=== PATIENT | female | born 1995 | race Caucasian/White ===

== ENCOUNTER 2016-08-24 07:23 | Emergency (ER) | payer BC ==
[2016-08-24] MEDS ORDERED: ONDANSETRON 4 MG TAB.RAPDIS PO ONE (08:55)
[2016-08-24] MEDS ORDERED: NORMAL SALINE 1000 ML 1,000 ML IV ONE ×2 (08:55→09:31)
--- NOTE | 2016-08-24 08:55 | ER Document Report ---
ED GI/ - General Chief Complaint: Vomiting Stated Complaint: NAUSEA Time seen by provider: 08:55 Mode of Arrival: Ambulatory Information source: Patient, Parent Notes: 21 yo female with celiac dx vomiting since last night. Generalized abdominal pain. No diarrhea or fever. No uti sx. not . Feels dry. TRAVEL OUTSIDE OF THE [place] IN LAST 30 DAYS: No - Related Data Allergies/Adverse Reactions: oxycodone HCl [From Percocet] Allergy (Severe, Verified 08/24/16 07:39) severe vomiting montelukast sodium [From Singulair] Adverse Reaction (Severe, Verified 08/24/16 07:39) severe vomiting wheat [Wheat] Adverse Reaction (Severe, Verified 08/24/16 07:39) NAUSEA,VOMITING,BLOATING,CONSTIPATION Past Medical History - General Information source: Patient, Parent - Social History Smoking Status: Never Smoker Chew tobacco use (# tins/day): No Frequency of alcohol use: None Drug Abuse: None Lives with: Parents Family History: Reviewed & Not Pertinent Patient has suicidal ideation: No Patient has homicidal ideation: No Pulmonary Medical History: Reports: Hx Asthma - ALLERGY INDUCED ASTHMA/COUGH/ last used rescue inhaler in spring 2014 Neurological Medical History: Reports: Hx Migraine GI Medical History: Reports: Other - celiac dx Past Surgical History: Reports: Hx Orthopedic Surgery - shane's disease surgery - Immunizations Immunizations up to date: Yes Hx Diphtheria, Pertussis, Tetanus Vaccination: Yes Review of Systems - Review of Systems Constitutional: No symptoms reported EENT: No symptoms reported Cardiovascular: No symptoms reported Respiratory: No symptoms reported Gastrointestinal: See HPI Genitourinary: No symptoms reported Female Genitourinary: No symptoms reported Musculoskeletal: No symptoms reported Skin: No symptoms reported Hematologic/Lymphatic: No symptoms reported Neurological/Psychological: No symptoms reported Physical Exam - Vital signs Vitals: Temp Pulse Resp BP Pulse Ox 97.8 F 110 H 18 128/74 H 97 08/24/16 07:40 08/24/16 07:40 08/24/16 07:40 08/24/16 07:40 08/24/16 07:40 Interpretation: Normal - General General appearance: Appears well, Alert - HEENT Head: Normocephalic, Atraumatic Eyes: Normal Pupils: PERRL - Respiratory Respiratory status: No respiratory distress Chest status: Nontender Breath sounds: Normal Chest palpation: Normal - Cardiovascular Rhythm: Regular Heart sounds: Normal auscultation Murmur: No - Abdominal Inspection: Normal Distension: No distension Bowel sounds: Normal Tenderness: Other - minimal left periumbilical Organomegaly: No organomegaly - Back Back: Normal, Nontender. No: CVA tenderness - Extremities General upper extremity: Normal inspection, Nontender, Normal color, Normal ROM , Normal temperature General lower extremity: Normal inspection, Nontender, Normal color, Normal ROM , Normal temperature, Normal weight bearing. No: Philippe's sign - Neurological Neuro grossly intact: Yes Cognition: Normal Orientation: AAOx4 [place] Coma Scale Eye Opening: Spontaneous [place] Coma Scale Verbal: Oriented [place] Coma Scale Motor: Obeys Commands [place] Coma Scale Total: 15 Speech: Normal Motor strength normal: LUE, RUE, LLE, RLE Sensory: Normal - Psychological Associated symptoms: Normal affect, Normal mood - Skin Skin Temperature: Warm Skin Moisture: Dry Skin Color: Normal Skin irregularity: negative: Rash Course - Re-evaluation Re-evalutation: 08/24/16 11:33 feels better, eating popsicle without vomiting. abdomin hurts less, mild tender to the left of umbilicus. - Vital Signs Vital signs: Temp Pulse Resp BP Pulse Ox 97.7 F 99 16 113/54 L 99 08/24/16 11:31 08/24/16 11:31 08/24/16 11:31 08/24/16 11:31 08/24/16 11:31 - Laboratory Result Diagrams: 08/24/16 09:15 08/24/16 09:15 Laboratory results interpreted by me: 08/24/16 08/24/16 07:50 09:15 Seg Neutrophils % 88.9 H Lymphocytes % 6.5 L Absolute Lymphocytes 0.4 L Urine Ketones TRACE H Urine Urobilinogen 2.0 H Discharge - Discharge Clinical Impression: Dehydration, nausea, abdominal pain Vomiting Qualifiers: Vomiting type: unspecified Vomiting Intractability: non-intractable Nausea presence: with nausea Qualified Code(s): R11.2 - Nausea with vomiting, unspecified Condition: Good Disposition: HOME, SELF-CARE Instructions: Antinausea Medication ([facility]), Intravenous (IV) Fluids ([facility]), Vomiting ([facility]), Dehydration ([facility]), Abdominal Pain ([facility]) Additional Instructions: plenty of fluids to er if worse copy of labs given to you Prescriptions: Ondansetron HCl [Zofran 4 mg Tablet] 1 - 2 tab PO Q4H PRN #20 tablet PRN Reason: Forms: Return to Work Referrals: RENAE CARRION MD [Primary Care Provider] - Follow up tomorrow
[2016-08-24 09:39] LABS: ABSOLUTE LYMPHOCYTES (AUTO) 0.4 10^3/uL (0.5-4.7); ABSOLUTE MONOCYTES (AUTO) 0.2 10^3/uL (0.1-1.4); ABSOLUTE NEUT (AUTO) 5.4 10^3/uL (1.7-8.2); BASOPHILS % (AUTO) 0.4 % (0-2); EOSINOPHILS % (AUTO) 0.5 % (0-6); HEMATOCRIT 42.3 % (36.0-47.0); HEMOGLOBIN 14.1 g/dL (12.0-15.5); LYMPHOCYTES % (AUTO) 6.5 % (13-45); MEAN CORPUSCULAR HEMOGLOBIN 30.2 pg (27.0-33.4); MEAN CORPUSCULAR HGB CONC 33.3 g/dL (32.0-36.0); MEAN CORPUSCULAR VOLUME 91 fl (80-97); MONOCYTES % (AUTO) 3.7 % (3-13); RED BLOOD COUNT 4.66 10^6/uL (3.72-5.28); RED CELL DISTRIBUTION WIDTH 12.8 % (11.5-14.0); SEGMENTED NEUTROPHILS % (AUTO) 88.9 % (42-78)
[2016-08-24 09:44] LABS: APPEARANCE,URINE SLIGHTLY-CLOUDY; BILIRUBIN,URINE NEGATIVE (NEGATIVE); GLUCOSE, URINE NEGATIVE (NEGATIVE); KETONES,URINE TRACE mg/dL (NEGATIVE); LEUKOCYTE ESTERASE,URINE NEGATIVE (NEGATIVE); NITRITE,URINE NEGATIVE (NEGATIVE); PROTEIN,URINE NEGATIVE (NEGATIVE); URINE SPECIFIC GRAVITY 1.029
[2016-08-24 10:06] LABS: ALANINE AMINOTRANSFERASE 32 U/L (9-52); ALBUMIN 4.8 g/dL (3.5-5.0); ALKALINE PHOSPHATASE 102 U/L (38-126); ANION GAP 16 (5-19); ASPARTATE AMINO TRANSFERASE 23 U/L (14-36); BILIRUBIN,TOTAL 0.7 mg/dL (0.2-1.3); BLOOD UREA NITROGEN 14 mg/dL (7-20); CALCIUM 9.6 mg/dL (8.4-10.2); CARBON DIOXIDE 22 mmol/L (22-30); CHLORIDE 106 mmol/L (98-107); CREATININE RESULT 0.67 mg/dL (0.52-1.25); GLUCOSE 95 mg/dL (75-110); LIPASE 92.2 U/L (23-300); POTASSIUM 4.1 mmol/L (3.6-5.0); SODIUM 144.4 mmol/L (137-145); TOTAL PROTEIN 7.8 g/dL (6.3-8.2)
[2016-08-24 11:43] VITALS: BP 113/54
== END 2016-08-24 11:43 | disposition home or self-care (01) ==
LOC: ER 07:23
DX: K90.0 Celiac disease (principal); R11.2 Nausea with vomiting, unspecified; R10.84 Generalized abdominal pain; E86.0 Dehydration; J45.909 Unspecified asthma, uncomplicated; Z88.5 Allergy status to narcotic agent
CPT/HCPCS: 99283; 96360; 96361; 36415; 87086; 83690; 84703; 85025; 80053; 81001; S0119; J7030

== ENCOUNTER 2016-10-07 13:28 | Emergency (ER) | payer BC ==
--- NOTE | 2016-10-07 13:44 | ER Document Report ---
ED Medical Screen (RME) - General Stated Complaint: HEAD PAIN Mode of Arrival: Ambulatory Information source: Patient Notes: Patient complains of headache pain that started around 11 AM this morning. Patient reports nausea and vomiting today. Patient took Topamax and amitriptyline as well as Maxalt without relief of her symptoms. Patient was given Phenergan and denies any improvement. No fever. hx; migraines, celiac I have greeted and performed a rapid initial assessment of this patient. A comprehensive ED assessment and evaluation of the patient, analysis of test results and completion of the medical decision making process will be conducted by additional ED providers. TRAVEL OUTSIDE OF THE [place] IN LAST 30 DAYS: No - Related Data Allergies/Adverse Reactions: oxycodone HCl [From Percocet] Allergy (Severe, Verified 10/07/16 13:41) severe vomiting montelukast sodium [From Singulair] Adverse Reaction (Severe, Verified 10/07/16 13:41) severe vomiting wheat [Wheat] Adverse Reaction (Severe, Verified 10/07/16 13:41) NAUSEA,VOMITING,BLOATING,CONSTIPATION Past Medical History - Past Medical History Cardiac Medical History: Denies: Hx Heart Attack, Hx Hypertension Pulmonary Medical History: Reports: Hx Asthma - ALLERGY INDUCED ASTHMA/COUGH/ last used rescue inhaler in spring 2014 Neurological Medical History: Reports: Hx Migraine. 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 Denies: Hx Hysterectomy, Hx Mastectomy, Hx Open Heart Surgery, Hx Pacemaker - Immunizations Immunizations up to date: Yes Hx Diphtheria, Pertussis, Tetanus Vaccination: Yes Physical Exam - Vital signs Vitals: Temp Pulse Resp BP Pulse Ox 97.8 F 122 H 16 104/66 98 10/07/16 13:38 10/07/16 13:38 10/07/16 13:38 10/07/16 13:38 10/07/16 13:38 - Cardiovascular Rhythm: Tachycardia Heart sounds: S1 appreciated, S2 appreciated - Neurological Orientation: AAOx4 [place] Coma Scale Eye Opening: Spontaneous [place] Coma Scale Verbal: Oriented [place] Coma Scale Motor: Obeys Commands [place] Coma Scale Total: 15 Course - Vital Signs Vital signs: Temp Pulse Resp BP Pulse Ox 97.8 F 122 H 16 104/66 98 10/07/16 13:38 10/07/16 13:38 10/07/16 13:38 10/07/16 13:38 10/07/16 13:38
[2016-10-07] MEDS ORDERED: METOCLOPRAMIDE HCL 10 MG TABLET PO ONE (16:57)
[2016-10-07] MEDS ORDERED: DIPHENHYDRAMINE HCL 50 MG CAPSULE PO ONE ×2 (16:57→17:00)
[2016-10-07] MEDS ORDERED: ONDANSETRON 4 MG TAB.RAPDIS PO ONE (16:58)
[2016-10-07] MEDS ORDERED: KETOROLAC TROMETHAMINE 60 MG/2 ML SDV IM ONE (16:59)
--- NOTE | 2016-10-07 17:12 | ER Document Report ---
ED Headache - General Chief Complaint: Headache Stated Complaint: HEAD PAIN Mode of Arrival: Ambulatory Notes: Patient is complaining of a severe headache. She says that she has a long history of headaches, first diagnosed about 3 years ago. She has been under a local neurologist and recently changed to the care of another local neurologist , Dr. Chavira, seeing him for the first time this past week. She is currently maintained on Topamax twice a day and amitriptyline in the evening. Dr. Chavira also just prescribed Rizatryptan as a rescue medication. Patient says that she began to have a mild headache about 8 PM last evening. She took her routine amitriptyline and Topamax and felt "fine" after that and went out to dinner with friends and came home about 10 PM. She began doing some cooking and felt her headache getting worse. She took one of her rescue pills about midnight but it did not relieve the headache. She's had several vomiting episodes throughout the night until about 9 AM this morning, although she remained nauseated, in spite of Zofran, throughout the afternoon. She took her scheduled Topamax this morning. Patient says that she has been scheduled for an EEG by Dr. Chavira. She has been having blackout spells and he is concerned she might be having some sort of seizure problem. Patient has not had any fever. No persistent neurologic deficits, but does feel dizzy and off-balance.. Patient's headache is located in the back of her head. Patient says that she has not had a headache this bad since she first started having them back in 2014. At that time, she had a CT scan of her head and an MRI of her head. She was not told of any abnormalities on either of these studies. Patient also has celiac disease. TRAVEL OUTSIDE OF THE [place] IN LAST 30 DAYS: No - Related Data Allergies/Adverse Reactions: oxycodone HCl [From Percocet] Allergy (Severe, Verified 10/07/16 13:41) severe vomiting montelukast sodium [From Singulair] Adverse Reaction (Severe, Verified 10/07/16 13:41) severe vomiting wheat [Wheat] Adverse Reaction (Severe, Verified 10/07/16 13:41) NAUSEA,VOMITING,BLOATING,CONSTIPATION Past Medical History - General Information source: Patient - Social History Smoking Status: Never Smoker Chew tobacco use (# tins/day): No Frequency of alcohol use: None Drug Abuse: None Family History: Reviewed & Not Pertinent Patient has suicidal ideation: No Patient has homicidal ideation: No Pulmonary Medical History: Reports: Hx Asthma - ALLERGY INDUCED ASTHMA/COUGH/ last used rescue inhaler in spring 2014 Neurological Medical History: Reports: Hx Migraine Past Surgical History: Reports: Hx Orthopedic Surgery - shane's disease surgery - Immunizations Immunizations up to date: Yes Hx Diphtheria, Pertussis, Tetanus Vaccination: Yes Review of Systems - Review of Systems Notes: REVIEW OF SYSTEMS: CONSTITUTIONAL : Denies fever. EENT: Denies eye, ear, nose or mouth or throat pain or other symptoms. CARDIOVASCULAR: Denies chest pain. RESPIRATORY: Denies cough, chest congestion, or shortness of breath. GASTROINTESTINAL: Has had nausea and vomiting but no diarrhea. GENITOURINARY: Denies difficulty or painful urinating, urinary frequency, blood in urine. MUSCULOSKELETAL: Denies back or neck pain. Denies joint pain or swelling. SKIN: Denies rash or skin lesions. NEUROLOGICAL: See history of present illness.. ALL OTHER SYSTEMS REVIEWED AND NEGATIVE. Physical Exam - Vital signs Vitals: Temp Pulse Resp BP Pulse Ox 97.8 F 122 H 16 104/66 98 10/07/16 13:38 10/07/16 13:38 10/07/16 13:38 10/07/16 13:38 10/07/16 13:38 Interpretation: Tachycardic - Mild - Notes Notes: PHYSICAL EXAMINATION: GENERAL: Well-appearing, in no acute distress. Ambulatory. Vital signs are all normal except for mild tachycardia. HEAD: Atraumatic, normocephalic. EYES: Pupils equal round and reactive to light, extraocular movements intact. ENT: oropharynx clear without exudates. Moist mucous membranes. NECK: Normal range of motion, supple. Can easily flex head yes and touch chin on chest. LUNGS: Breath sounds clear and equal bilaterally. HEART: Regular rate and rhythm without murmurs. Heart rate at bedside 100 taken by me. ABDOMEN: Soft, nontender. No guarding or rebound. BACK: No tenderness throughout entire back. EXTREMITIES: Normal range of motion without pain. NEUROLOGICAL: Normal speech, normal gait. Normal sensory, motor, and reflex exams. Awake, alert, and oriented x3. Cranial nerves normal. PSYCH: Normal mood, normal affect. SKIN: Warm, dry, no rashes. Course - Re-evaluation Re-evalutation: 10/07/16 18:56 Patient says her headache is a little bit better. She was, in fact, dozing when I entered the exam room which has the light turned down. She has been drinking liquids and keeping them down. CT of her head was negative. - Vital Signs Vital signs: Temp Pulse Resp BP Pulse Ox 97.7 F 77 16 100/60 98 10/07/16 19:09 10/07/16 19:09 10/07/16 13:38 10/07/16 19:09 10/07/16 19:09 - Diagnostic Test Radiology reviewed: Image reviewed, Reports reviewed - CT of the patient's brain and head are normal. Discharge - Discharge Clinical Impression: Headache Qualifiers: Headache type: unspecified Headache chronicity pattern: acute headache Intractability: intractable Qualified Code(s): R51 - Headache Vomiting Qualifiers: Vomiting type: unspecified Vomiting Intractability: non-intractable Nausea presence: with nausea Qualified Code(s): R11.2 - Nausea with vomiting, unspecified Condition: Stable Disposition: HOME, SELF-CARE Additional Instructions: HEADACHE: The physician does not feel that the headache you are experiencing has a serious underlying cause. Most headaches are due to emotional stress, with resultant muscle tension (tension headache). Occasionally, headaches are secondary to changes in the blood vessels of the scalp (vascular headache and migraine headache). Sometimes, a headache is the first symptom of another developing illness, such as a viral infection. You have no evidence of stroke, bleeding, meningitis, or other serious cause of your headache. The treatment of headaches varies with the severity and cause of the pain. Not all headaches need pain shots. In fact, there is evidence that using narcotics for headaches may make them worse in the long run. The physician will determine the therapy that's in your best interest. If you develop a fever, if the headache is different from any you've previously experienced, or if the headache progressively worsens, then call your physician at once or go to the emergency room. REGLAN (METOCLOPRAMIDE): Reglan has been prescribed. This medicine affects the stomach and intestines. It can be used to treat nausea and vomiting, to prevent reflux of stomach acid up into the esophagus, or to increase the contractions of the stomach and intestines. It is often prescribed for esophagitis, and for paralysis of the stomach in diabetics. Reglan can cause either mild restlessness or drowsiness. You should contact the doctor at once if you become extremely restless, anxious, or cannot sleep, or if you develop uncontrollable motions of the lips, tongue, or jaw. Do not take alcohol with this medicine. Do not drive or operate machinery until you have been taking this medicine long enough to know how it affects you. Call the doctor if you develop abdominal pains, lightheadedness, black stool, or blood in the stool or vomitus. USE OF DIPHENHYDRAMINE along with Reglan: Diphenhydramine (Benadryl) is an antihistamine and has been recommended to help treat your headache and to prevent side effects of other medications used to treat headaches. The medication can be repeated four times daily. Age Elixir (12.5 mg/tsp) 25 mg pill adult 1-2 tabs Antihistamines may cause drowsiness, especially with the first dose. Do not operate machinery or drive while under the effects of the medication. Do not combine the medication with alcohol, or with any other medication without talking to your doctor. ANTINAUSEA MEDICATION: You have been given a medication to suppress nausea and vomiting. This type of medication can be given as a shot, pill, or suppository. It will usually last for many hours. Pills and shots usually last six to eight hours, suppositories last about 12 hours. For the typical illness, only one or two doses of the medication may be necessary. Mild lightheadedness may occur. This type of medicine can cause drowsiness. Do not drive or operate dangerous machinery while under its influence. Do not mix with alcohol. See your doctor at once if you have muscle spasms or tightness, or uncontrollable motions (particularly of the neck, mouth, or jaw). Persistent vomiting or severe lightheadedness should also be evaluated by the physician. TORADOL INJECTION: You have been given an injection of ketorolac tromethamine (Toradol). This is an excellent, safe drug for pain control. It also has potent antiinflammatory action. You should have significant pain relief within about one hour. Toradol is not addicting and is non-sedating. It does not interfere with driving or work. Call or return if you develop itching, hives, shortness of breath, or rash. FOLLOW-UP CARE: If you have been referred to a physician for follow-up care, call the physician s office for an appointment as you were instructed or within the next two days. If you experience worsening or a significant change in your symptoms, notify the physician immediately or return to the Emergency Department at any time for re-evaluation. Prescriptions: Ondansetron [Zofran Odt 4 mg Tablet] 1 - 2 tab PO Q4HP PRN #15 tab.rapdis PRN Reason: For Nausea/Vomiting Metoclopramide HCl [Reglan 10 mg Tablet] 1 - 2 tab PO Q6HP PRN #20 tablet PRN Reason: Forms: Return to School, Return to Work Referrals: DEYANIRA CHAVIRA MD [ACTIVE STAFF] - Follow up as needed
[2016-10-07] MEDS ORDERED: DIPHENHYDRAMINE HCL 25 MG CAPSULE ONE (17:18)
[2016-10-07] MEDS ORDERED: DIPHENHYDRAMINE HCL 25 MG CAPSULE PO ONE (17:19)
[2016-10-07 19:11] VITALS: BP 100/60
== END 2016-10-07 19:18 | disposition home or self-care (01) ==
LOC: ER 13:28
DX: R51 Headache (principal); Z79.899 Other long term (current) drug therapy; R11.2 Nausea with vomiting, unspecified; R42 Dizziness and giddiness; J45.909 Unspecified asthma, uncomplicated; K90.0 Celiac disease; Z88.5 Allergy status to narcotic agent
CPT/HCPCS: 99283; 96372; 70450; J1885; S0119

== ENCOUNTER 2017-02-12 12:40 | Emergency (ER) | payer BC ==
[2017-02-12 12:50] VITALS: BP 115/74
[2017-02-12] MEDS ORDERED: ONDANSETRON 4 MG TAB.RAPDIS PO ONE (12:59)
[2017-02-12] MEDS ORDERED: HYDROCODONE/ACETAMINOPHEN 5-325 MG TABLET PO ONE (12:59)
--- NOTE | 2017-02-12 13:03 | ER Document Report ---
ED Medical Screen (RME) - General Chief Complaint: Abdominal Pain Stated Complaint: RIGHT SIDE PAIN Time Seen by Provider: 02/12/17 12:54 Notes: The patient is a 21-year-old female, past medical history celiac disease, presents with 5 hours of continued right upper quadrant and right lower quadrant abdominal pain. She is also feeling nauseous. LMP 01/28/2017. Denies vomiting, diarrhea, constipation, dysuria, hematuria, chest pain or shortness of breath. PE: RUQ and RLQ abdominal tenderness. Normal bowel sounds. Right CVA tenderness. RRR. Lungs CTAB. I have greeted and performed a rapid initial assessment of this patient. A comprehensive ED assessment and evaluation of the patient, analysis of test results and completion of the medical decision making process will be conducted by additional ED providers. TRAVEL OUTSIDE OF THE [place] IN LAST 30 DAYS: No - Related Data Allergies/Adverse Reactions: oxycodone HCl [From Percocet] Allergy (Severe, Verified 02/12/17 12:47) severe vomiting montelukast sodium [From Singulair] Adverse Reaction (Severe, Verified 02/12/17 12:47) severe vomiting wheat [Wheat] Adverse Reaction (Severe, Verified 10/07/16 13:41) NAUSEA,VOMITING,BLOATING,CONSTIPATION Past Medical History - Past Medical History Cardiac Medical History: Denies: Hx Heart Attack, Hx Hypertension Pulmonary Medical History: Reports: Hx Asthma - ALLERGY INDUCED ASTHMA/COUGH/ last used rescue inhaler in spring 2014 Neurological Medical History: Reports: Hx Migraine. 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 Denies: Hx Hysterectomy, Hx Mastectomy, Hx Open Heart Surgery, Hx Pacemaker - Immunizations Immunizations up to date: Yes Hx Diphtheria, Pertussis, Tetanus Vaccination: Yes Physical Exam - Vital signs Vitals: Temp Pulse Resp BP Pulse Ox 98.4 F 93 18 115/74 99 02/12/17 12:48 02/12/17 12:48 02/12/17 12:48 02/12/17 12:48 02/12/17 12:48 Course - Vital Signs Vital signs: Temp Pulse Resp BP Pulse Ox 98.4 F 93 18 115/74 99 02/12/17 12:48 02/12/17 12:48 02/12/17 12:48 02/12/17 12:48 02/12/17 12:48
[2017-02-12] MEDS ORDERED: KETOROLAC TROMETHAMINE 60 MG/2 ML SDV IM ONE (13:36)
--- NOTE | 2017-02-12 13:39 | ER Document Report ---
ED General - General Chief Complaint: Abdominal Pain Stated Complaint: RIGHT SIDE PAIN Time Seen by Provider: 02/12/17 12:54 Notes: 21-year-old female with celiac disease presents with about 6 hours of right- sided abdominal pain, right upper quadrant, radiating to the right flank, severe , worsening. Associated with nausea but no vomiting. Associated with anorexia. Denies fevers or chills. The pain gets worse when she takes a deep breath but she has no chest pain or shortness of breath. She denies urinary symptoms. TRAVEL OUTSIDE OF THE [place] IN LAST 30 DAYS: No - Related Data Allergies/Adverse Reactions: oxycodone HCl [From Percocet] Allergy (Severe, Verified 02/12/17 13:30) severe vomiting barley Allergy (Verified 02/12/17 13:30) montelukast sodium [From Singulair] Adverse Reaction (Severe, Verified 02/12/17 13:30) severe vomiting wheat [Wheat] Adverse Reaction (Severe, Verified 02/12/17 13:30) NAUSEA,VOMITING,BLOATING,CONSTIPATION acetaminophen [From [place]] Adverse Reaction (Verified 02/12/17 13:30) Constipation hydrocodone [From [place]] Adverse Reaction (Verified 02/12/17 13:30) Constipation rye Allergy (Uncoded 02/12/17 13:30) Past Medical History - Social History Smoking Status: Never Smoker Chew tobacco use (# tins/day): No Frequency of alcohol use: None Drug Abuse: None Family History: Reviewed & Not Pertinent Patient has suicidal ideation: No Patient has homicidal ideation: No - Past Medical History Cardiac Medical History: Denies: Hx Heart Attack, Hx Hypertension Pulmonary Medical History: Reports: Hx Asthma - ALLERGY INDUCED ASTHMA/COUGH/ last used rescue inhaler in spring 2014 Neurological Medical History: Reports: Hx Migraine. Denies: Hx Cerebrovascular Accident, Hx Seizures Renal/ Medical History: Denies: Hx Peritoneal Dialysis GI Medical History: Reports: Hx Gastroesophageal Reflux Disease. 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 Denies: Hx Hysterectomy, Hx Mastectomy, Hx Open Heart Surgery, Hx Pacemaker - Immunizations Immunizations up to date: Yes Hx Diphtheria, Pertussis, Tetanus Vaccination: Yes Review of Systems - Review of Systems Notes: GEN: Denies fever, chills, weight loss ENT: Denies sore throat, nasal discharge, ear pain EYES: Denies blurry vision, eye pain, discharge CV: Denies chest pain, palpitations, edema RESP: Denies cough, shortness of breath, wheezing GI: Quadrant abdominal pain MSK: Denies joint pain/swelling, edema, SKIN: Denies rash, skin lesions LYMPH: Denies swollen glands/lymph nodes NEURO: Denies headache, focal weakness or numbness, dizziness PSYCH: Denies depression, suicidal or homicidal ideation Physical Exam - Vital signs Vitals: Temp Pulse Resp BP Pulse Ox 98.4 F 93 18 115/74 99 02/12/17 12:48 02/12/17 12:48 02/12/17 12:48 02/12/17 12:48 02/12/17 12:48 - Notes Notes: General: No acute distress, well-nourished Head: Atraumatic, normocephalic ENT: Mouth normal, oropharynx moist, no exudates or tonsillar enlargement Eyes: Conjunctiva normal, pupils equal, lids normal Neck: No JVD, supple, no guarding CVS: Normal rate, regular rhythm, no murmurs Resp: No resp distress, equal and normal breath sounds bilaterally GI: Nondistended, soft, quadrant tenderness, right flank tenderness, right CVA tenderness Ext: No deformities, no edema, normal range of motion in upper and lower ext Skin: No rash, warm Lymphatic: No lymphadeopathy noted Neuro: Awake, alert. Face symmetric. Course - Re-evaluation Re-evalutation: 02/12/17 13:38 21-year-old female presented with acute right upper quadrant flank pain. She has some tenderness. Not septic based on vital signs. Differential includes pyelonephritis, gallbladder disease less likely appendicitis. Plan: Urinalysis and labs have already been ordered by provider at triage. Will treat pain with Toradol. Patient cannot take [place]. 02/12/17 15:22 Reevaluated, pain is better. CT scan shows right-sided ovarian cyst which is likely the source of pain. I do not believe this is torsion because the cyst is not mentioned is having low flow on CT and the patient is quite comfortable. She will follow up with primary care, versus GENERAL MANAGER, and take ibuprofen for pain. - Vital Signs Vital signs: Temp Pulse Resp BP Pulse Ox 98.4 F 93 18 115/74 99 02/12/17 12:48 02/12/17 12:48 02/12/17 12:48 02/12/17 12:48 02/12/17 12:48 - Laboratory Result Diagrams: 02/12/17 13:05 02/12/17 13:05 Laboratory results interpreted by me: 02/12/17 02/12/17 13:05 13:05 Chloride 108 H Urine Protein 30 H Discharge - Discharge Condition: Good Disposition: HOME, SELF-CARE Additional Instructions: Your pain is likely coming from a right sided ovarian cyst. Please take ibuprofen 600 mg every 6 hours for pain relief. Please return to the emergency department if her pain changes, gets worse, or is accompanied by nausea vomiting or fever. Please follow-up with your GENERAL MANAGER.
[2017-02-12 13:40] LABS: ABSOLUTE LYMPHOCYTES (AUTO) 1.5 10^3/uL (0.5-4.7); ABSOLUTE MONOCYTES (AUTO) 0.5 10^3/uL (0.1-1.4); ABSOLUTE NEUT (AUTO) 4.4 10^3/uL (1.7-8.2); BASOPHILS % (AUTO) 0.4 % (0-2); EOSINOPHILS % (AUTO) 0.2 % (0-6); HEMATOCRIT 37.9 % (36.0-47.0); HEMOGLOBIN 12.8 g/dL (12.0-15.5); HGB HCT DIFFERENCE 0.5; LYMPHOCYTES % (AUTO) 22.8 % (13-45); MEAN CORPUSCULAR HEMOGLOBIN 30.3 pg (27.0-33.4); MEAN CORPUSCULAR HGB CONC 33.7 g/dL (32.0-36.0); MEAN CORPUSCULAR VOLUME 90 fl (80-97); RED BLOOD COUNT 4.23 10^6/uL (3.72-5.28); RED CELL DISTRIBUTION WIDTH 12.7 % (11.5-14.0); SEGMENTED NEUTROPHILS % (AUTO) 68.6 % (42-78); WHITE BLOOD COUNT 6.4 10^3/uL (4.0-10.5)
[2017-02-12 13:42] LABS: APPEARANCE,URINE SLIGHTLY-CLOUDY; BILIRUBIN,URINE NEGATIVE (NEGATIVE); GLUCOSE, URINE NEGATIVE (NEGATIVE); KETONES,URINE NEGATIVE (NEGATIVE); LEUKOCYTE ESTERASE,URINE NEGATIVE (NEGATIVE); NITRITE,URINE NEGATIVE (NEGATIVE); PROTEIN,URINE 30 mg/dL (NEGATIVE); URINE SPECIFIC GRAVITY 1.027; UROBILINOGEN,URINE NEGATIVE mg/dL (<2.0)
[2017-02-12 14:03] LABS: ALANINE AMINOTRANSFERASE 29 U/L (9-52); ALBUMIN 4.4 g/dL (3.5-5.0); ALKALINE PHOSPHATASE 89 U/L (38-126); ANION GAP 12 (5-19); ASPARTATE AMINO TRANSFERASE 19 U/L (14-36); BILIRUBIN,DIRECT 0.3 mg/dL (0.0-0.4); BILIRUBIN,TOTAL 0.7 mg/dL (0.2-1.3); BLOOD UREA NITROGEN 10 mg/dL (7-20); CALCIUM 9.5 mg/dL (8.4-10.2); CARBON DIOXIDE 22 mmol/L (22-30); CHLORIDE 108 mmol/L (98-107); GLUCOSE 88 mg/dL (75-110); SODIUM 142.1 mmol/L (137-145); TOTAL PROTEIN 7.6 g/dL (6.3-8.2)
--- NOTE | 2017-02-12 14:16 | RADIOLOGY REPORT (SQ) ---
EXAM DESCRIPTION: U/S ABDOMEN LIMITED W/O DOP COMPLETED DATE/TIME: 02/12/2017 2:06 pm REASON FOR STUDY: RUQ pain COMPARISON: None. TECHNIQUE: Dynamic and static grayscale images acquired of the abdomen and recorded on PACS. Additio nal selected color Doppler and spectral images recorded. LIMITATIONS: None. FINDINGS: PANCREAS: No masses. Visualized pancreatic duct normal caliber. LIVER: 17.3 cm. Normal echotexture. LIVER VASCULATURE: Normal directional flow of the main portal vein and hepatic veins. GALLBLADDER: No stones. Normal wall thickness. No pericholecystic fluid. ULTRASOUND-DETECTED CARTY'S SIGN: Negative. INTRAHEPATIC DUCTS AND COMMON DUCT: Common bile duct is normal at 3 mm. There is no dilatation of in trahepatic ducts. INFERIOR VENA CAVA: Normal flow. AORTA: No aneurysm. RIGHT KIDNEY: Normal size, 10.2 cm. Normal echogenicity. No solid or suspicious masses. No hydroneph rosis. No calcifications. PERITONEAL AND RIGHT PLEURAL SPACE: No ascites or effusions. OTHER: No other significant findings. IMPRESSION: NORMAL RIGHT UPPER QUADRANT ULTRASOUND. TECHNICAL DOCUMENTATION: JOB ID: [id number] [employer]- All Rights Reserved
--- NOTE | 2017-02-12 15:09 | RADIOLOGY REPORT (SQ) ---
EXAM DESCRIPTION: CT ABD/PELVIS WITH IV ONLY COMPLETED DATE/TIME: 02/12/2017 2:52 pm REASON FOR STUDY: Abdominal pain right upper and lower quadrant COMPARISON: None. TECHNIQUE: CT scan of the abdomen and pelvis performed using helical scanning technique with dynamic intravenous contrast injection. No oral contrast. Images reviewed with lung, soft tissue, and bone windows. Reconstructed coronal and sagittal MPR images reviewed. Delayed images for evaluation of the urinary system also acquired. All images stored on PACS. All CT scanners at this facility use dose modulation, iterative reconstruction, and/or weight based d osing when appropriate to reduce radiation dose to as low as reasonably achievable (ALARA). [facility]: Dose Right [facility]: CareDose [facility]: Dose Right [facility]: Teradose 4D [facility]: [employer] CONTRAST TYPE AND DOSE: contrast/concentration: Isovue 370.00 mg/ml; Total Contrast Delivered: 74.0 ml; Total Saline Delivered: 66.0 ml 74 mL Isovue intravenously. RENAL FUNCTION: Not required for younger patients. HCG negative. RADIATION DOSE: Up-to-date CT equipment and radiation dose reduction techniques were employed. CTDIv ol: 7.7 - 10.7 mGy. DLP: 998 mGy-cm.. LIMITATIONS: None. FINDINGS: LOWER CHEST: No significant findings. No nodules or infiltrates. LIVER: Normal size. No masses or dilated ducts. SPLEEN: Normal size. No focal lesions. PANCREAS: No masses. No significant calcifications. No adjacent inflammation or peripancreatic fluid collections. Pancreatic duct not dilated. GALLBLADDER: No identified stones by CT criteria. No inflammatory changes to suggest cholecystitis. ADRENAL GLANDS: No significant masses or asymmetry. RIGHT KIDNEY AND URETER: No solid masses. No significant calcification. No hydronephrosis or hydroure ter. LEFT KIDNEY AND URETER: No solid masses. No significant calcification. No hydronephrosis or hydrouret er. AORTA AND VESSELS: No AAA. RETROPERITONEUM: No retroperitoneal adenopathy, hemorrhage or masses. BOWEL AND PERITONEAL CAVITY: Some increase air and fecal material fills the colon. Nonobstructive ap pearance. No free air. APPENDIX: Limited visualization. Likely normal. PELVIS: 2.3 cm cyst right adnexa concerning for ovarian cyst. No fluid identified within the cul de sac. ABDOMINAL WALL: No masses. No hernias. BONES: No significant or acute findings. OTHER: No other significant finding. IMPRESSION: Mild constipation. 2.3 cm cyst right adnexa concerning for ovarian cyst. TECHNICAL DOCUMENTATION: JOB ID: [id number] Quality ID # [id number]: Final reports with documentation of one or more dose reduction techniques (e.g., Au tomated exposure control, adjustment of the mA and/or kV according to patient size, use of iterative reconstruction technique) 2010 [employer]- All Rights Reserved
[2017-02-13 09:23] LABS: ADD ON TESTING BLD IN LAB ACKNOWLEDGE
== END 2017-02-12 15:37 | disposition home or self-care (01) ==
LOC: ER 12:40
DX: R10.84 Generalized abdominal pain (principal); N83.201 Unspecified ovarian cyst, right side; R11.0 Nausea; R63.0 Anorexia; Z88.6 Allergy status to analgesic agent; K21.9 Gastro-esophageal reflux disease without esophagitis
CPT/HCPCS: 99284; 96372; 36415; 82728; 83690; 85025; 81025; 80053; 81001; 76705; 74177; J1885; S0119

== ENCOUNTER 2017-08-01 18:37 | Emergency (ER) | payer BC ==
--- NOTE | 2017-08-01 19:24 | ER Document Report ---
ED Medical Screen (RME) - General Chief Complaint: Blood Pressure Problem Stated Complaint: BLOOD PRESSURE PROBLEM Time Seen by Provider: 08/01/17 19:21 Notes: Patient with a history of allergy induced asthma presents with 2-3 days of cough and congestion. She also states that her heart is racing. She states she is feeling worse today. She was seen in urgent care today but her symptoms persist so she came to the emergency department. She is currently using Benadryl and prednisone with no relief. She has not used albuterol. TRAVEL OUTSIDE OF THE [place] IN LAST 30 DAYS: No - Related Data Allergies/Adverse Reactions: oxycodone HCl [From Percocet] Allergy (Severe, Verified 08/01/17 18:38) severe vomiting barley Allergy (Verified 08/01/17 18:38) montelukast sodium [From Singulair] Adverse Reaction (Severe, Verified 08/01/17 18:38) severe vomiting wheat [Wheat] Adverse Reaction (Severe, Verified 08/01/17 18:38) NAUSEA,VOMITING,BLOATING,CONSTIPATION acetaminophen [From [place]] Adverse Reaction (Verified 08/01/17 18:38) Constipation hydrocodone [From [place]] Adverse Reaction (Verified 08/01/17 18:38) Constipation rye Allergy (Uncoded 08/01/17 18:38) Past Medical History - Social History Chew tobacco use (# tins/day): No Frequency of alcohol use: None Drug Abuse: None - Past Medical History Cardiac Medical History: Denies: Hx Heart Attack, Hx Hypertension Pulmonary Medical History: Reports: Hx Asthma - ALLERGY INDUCED ASTHMA/COUGH/ last used rescue inhaler in spring 2014 Neurological Medical History: Reports: Hx Migraine. Denies: Hx Cerebrovascular Accident, Hx Seizures Renal/ Medical History: Denies: Hx Peritoneal Dialysis GI Medical History: Reports: Hx Gastroesophageal Reflux Disease. 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 Denies: Hx Hysterectomy, Hx Mastectomy, Hx Open Heart Surgery, Hx Pacemaker - Immunizations Immunizations up to date: Yes Hx Diphtheria, Pertussis, Tetanus Vaccination: Yes Physical Exam - Vital signs Vitals: Temp Pulse Resp BP Pulse Ox 97.3 F 121 H 20 136/73 H 98 08/01/17 18:55 08/01/17 18:55 08/01/17 18:55 08/01/17 18:55 08/01/17 18:55 Course - Vital Signs Vital signs: Temp Pulse Resp BP Pulse Ox 97.3 F 121 H 20 136/73 H 98 08/01/17 18:55 08/01/17 18:55 08/01/17 18:55 08/01/17 18:55 08/01/17 18:55
[2017-08-01] MEDS ORDERED: NORMAL SALINE 1000 ML 1,000 ML IV ONE ×2 (19:44→21:24)
--- NOTE | 2017-08-01 19:56 | RADIOLOGY REPORT (SQ) ---
EXAM DESCRIPTION: CHEST PA/LAT COMPLETED DATE/TIME: 08/01/2017 7:47 pm REASON FOR STUDY: cough/sob COMPARISON: 07/12/2013. EXAM PARAMETERS: NUMBER OF VIEWS: two views TECHNIQUE: Digital Frontal and Lateral radiographic views of the chest acquired. RADIATION DOSE: NA LIMITATIONS: none FINDINGS: LUNGS AND PLEURA: No opacities, masses or pneumothorax. No pleural effusion. MEDIASTINUM AND HILAR STRUCTURES: No masses or contour abnormalities. HEART AND VASCULAR STRUCTURES: Heart normal size. No evidence for failure. BONES: No acute findings. HARDWARE: None in the chest. OTHER: No other significant finding. IMPRESSION: NO SIGNIFICANT RADIOGRAPHIC FINDING IN THE CHEST. TECHNICAL DOCUMENTATION: JOB ID: [id number] [employer]- All Rights Reserved
[2017-08-01 20:11] LABS: ABSOLUTE LYMPHOCYTES (AUTO) 0.6 10^3/uL (0.5-4.7); ABSOLUTE MONOCYTES (AUTO) 0.1 10^3/uL (0.1-1.4); ABSOLUTE NEUT (AUTO) 4.5 10^3/uL (1.7-8.2); BASOPHILS % (AUTO) 0.2 % (0-2); EOSINOPHILS % (AUTO) 0.1 % (0-6); HEMATOCRIT 38.5 % (36.0-47.0); HEMOGLOBIN 13.2 g/dL (12.0-15.5); HGB HCT DIFFERENCE 1.1; LYMPHOCYTES % (AUTO) 11.1 % (13-45); MEAN CORPUSCULAR HEMOGLOBIN 30.4 pg (27.0-33.4); MEAN CORPUSCULAR HGB CONC 34.2 g/dL (32.0-36.0); MEAN CORPUSCULAR VOLUME 89 fl (80-97); MONOCYTES % (AUTO) 2.3 % (3-13); RED BLOOD COUNT 4.34 10^6/uL (3.72-5.28); RED CELL DISTRIBUTION WIDTH 12.9 % (11.5-14.0); SEGMENTED NEUTROPHILS % (AUTO) 86.3 % (42-78); WHITE BLOOD COUNT 5.2 10^3/uL (4.0-10.5)
[2017-08-01 20:15] LABS: APPEARANCE,URINE CLEAR; BILIRUBIN,URINE NEGATIVE (NEGATIVE); GLUCOSE, URINE NEGATIVE (NEGATIVE); KETONES,URINE 20 mg/dL (NEGATIVE); LEUKOCYTE ESTERASE,URINE NEGATIVE (NEGATIVE); NITRITE,URINE NEGATIVE (NEGATIVE); PROTEIN,URINE NEGATIVE (NEGATIVE); URINE SPECIFIC GRAVITY 1.017
--- NOTE | 2017-08-01 20:25 | ER Document Report ---
ED General - General Chief Complaint: Blood Pressure Problem Stated Complaint: BLOOD PRESSURE PROBLEM Time Seen by Provider: 08/01/17 19:21 Mode of Arrival: Ambulatory Information source: Patient Notes: 21 yo female c/o recent sinus congestion migraine saturday night, cough, post nasal drip. heart racing this am when woke up. Called mom at 11:00 c/o with shakiness, sinus/head congestion, had left upper chest discomfort when heart is racing, skin got blotching. Went to [facility], given steroid shot, 50mg benadryl, prednisone pack. Slept when she got home, woke up at 5 pm, felt nausea , queezy, heart racing, shakey tried to walk to see if it would help, light headed. Constant since 11:00 dull left upper chest pain, no shortness of breath , takes Oral Contraceptive (low dose). New medicine tessalon perle, prednisone, mucinex, maxalt. hydrocodone-chlorphen orb . PCP: Dr. Jay Senior hx. PE. TRAVEL OUTSIDE OF THE [place] IN LAST 30 DAYS: No - Related Data Allergies/Adverse Reactions: oxycodone HCl [From Percocet] Allergy (Severe, Verified 08/01/17 18:38) severe vomiting barley Allergy (Verified 08/01/17 18:38) montelukast sodium [From Singulair] Adverse Reaction (Severe, Verified 08/01/17 18:38) severe vomiting wheat [Wheat] Adverse Reaction (Severe, Verified 08/01/17 18:38) NAUSEA,VOMITING,BLOATING,CONSTIPATION acetaminophen [From [place]] Adverse Reaction (Verified 08/01/17 18:38) Constipation hydrocodone [From [place]] Adverse Reaction (Verified 08/01/17 18:38) Constipation rye Allergy (Uncoded 08/01/17 18:38) Past Medical History - General Information source: Patient - Social History Smoking Status: Never Smoker Chew tobacco use (# tins/day): No Frequency of alcohol use: None Drug Abuse: None Occupation: [employer] teacher Lives with: Parents Family History: Reviewed & Not Pertinent Patient has suicidal ideation: No Patient has homicidal ideation: No Pulmonary Medical History: Reports: Hx Asthma - ALLERGY INDUCED ASTHMA/COUGH/ last used rescue inhaler in spring 2014 Neurological Medical History: Reports: Hx Migraine Renal/ Medical History: Reports: Hx Ovarian Cysts. Denies: Hx Peritoneal Dialysis GI Medical History: Reports: Hx Gastroesophageal Reflux Disease, Hx Irritable Bowel Musculoskeltal Medical History: Reports Other - scoliosis Past Surgical History: Reports: Hx Orthopedic Surgery - shane's disease surgery , Other - ear tubes - Immunizations Immunizations up to date: Yes Hx Diphtheria, Pertussis, Tetanus Vaccination: Yes Review of Systems - Review of Systems Constitutional: See HPI EENT: No symptoms reported Cardiovascular: See HPI Respiratory: No symptoms reported Gastrointestinal: No symptoms reported Genitourinary: No symptoms reported Female Genitourinary: No symptoms reported Musculoskeletal: No symptoms reported Skin: No symptoms reported Hematologic/Lymphatic: No symptoms reported Neurological/Psychological: See HPI Physical Exam - Vital signs Vitals: Temp Pulse Resp BP Pulse Ox 97.3 F 121 H 20 136/73 H 98 08/01/17 18:55 08/01/17 18:55 08/01/17 18:55 08/01/17 18:55 08/01/17 18:55 Interpretation: Normal Notes: Looks dry - General General appearance: Appears well, Alert - HEENT Head: Normocephalic, Atraumatic Eyes: Normal Conjunctiva: Normal Pupils: PERRL Mouth/Lips: Normal Mucous membranes: Dry Neck: Supple. No: Lymphadenopathy - Respiratory Respiratory status: No respiratory distress Chest status: Nontender Breath sounds: Normal Chest palpation: Normal - Cardiovascular Rhythm: Regular, Other - rate 90 at this time Heart sounds: Normal auscultation Murmur: No - Abdominal Inspection: Normal Distension: No distension Bowel sounds: Normal Tenderness: Nontender. No: Tender Organomegaly: No organomegaly - Back Back: Normal, Nontender. No: CVA tenderness - Extremities General upper extremity: Normal inspection, Nontender, Normal color, Normal ROM , Normal temperature General lower extremity: Normal inspection, Nontender, Normal color, Normal ROM , Normal temperature, Normal weight bearing. No: Philippe's sign - Neurological Neuro grossly intact: Yes Cognition: Normal Orientation: AAOx4 Edison Coma Scale Eye Opening: Spontaneous Edison Coma Scale Verbal: Oriented [place] Coma Scale Motor: Obeys Commands Edison Coma Scale Total: 15 Speech: Normal Motor strength normal: LUE, RUE, LLE, RLE Sensory: Normal - Psychological Associated symptoms: Normal affect, Normal mood - Skin Skin Temperature: Warm Skin Moisture: Dry Skin Color: Normal Skin irregularity: negative: Rash Course - Re-evaluation Re-evalutation: 08/01/17 22:05 Orthostatics were negative although the patient said she was a little lightheaded when she stood. She states that the left retrosternal chest pain has dulled but not completely gone away. No shortness of breath. Glucose is 147, CO2 was 20 on the chemistry so I ordered a second liter of fluid her d- dimer is 0.42 which is negative her test is negative and her CBC is normal. I see no signs of pulse higher than 104, it is 65 now. 08/01/17 23:58 Discussed the case with Dr. Hutton and the patient can be discharged home. She is able to sit with a pulse of 75 and no dizziness. She looks better after the IV fluid. Her TSH is 0.31 and told her to discuss that with Dr. Thompson because she may have hyperthyroidism work up can be done as outpatient. 08/02/17 00:00 - Vital Signs Vital signs: Temp Pulse Resp BP Pulse Ox 98.3 F 92 20 107/56 L 96 08/01/17 23:17 08/01/17 21:00 08/01/17 23:01 08/01/17 23:00 08/01/17 23:01 - Laboratory Result Diagrams: 08/01/17 20:00 08/01/17 20:00 Laboratory results interpreted by me: 08/01/17 08/01/17 08/01/17 20:00 20:00 20:00 Seg Neutrophils % 86.3 H Lymphocytes % 11.1 L Monocytes % 2.3 L Chloride 108 H Carbon Dioxide 20 L Glucose 147 H TSH Urine Ketones 20 H Urine Urobilinogen 2.0 H Urine Ascorbic Acid 40 H 08/01/17 20:00 Seg Neutrophils % Lymphocytes % Monocytes % Chloride Carbon Dioxide Glucose TSH 0.31 L Urine Ketones Urine Urobilinogen Urine Ascorbic Acid Discharge - Discharge Clinical Impression: Dehydration, episode of sinus tachycardia, Viral syndrome Condition: Good Disposition: HOME, SELF-CARE Instructions: Dehydration ([facility]), Palpitations (Irregular or Rapid Heartrate) ( [facility]) Additional Instructions: see dr grajeda tomorrow drink plenty of water daily show dr. grajeda the labwork the TSH is low so you will need more thyroid studies. Forms: Return to Work Referrals: RENAE GRAJEDA MD [Primary Care Provider] - Follow up tomorrow
[2017-08-01 20:29] LABS: URINE BARBITURATES SCREEN NEGATIVE; URINE METHADONE SCREEN NEGATIVE; URINE OPIATES LOW UNCONFIRMED POSITIVE; URINE PHENCYCLIDINE SCREEN NEGATIVE
[2017-08-01 20:32] LABS: ALANINE AMINOTRANSFERASE 51 U/L (9-52); ALBUMIN 4.6 g/dL (3.5-5.0); ALKALINE PHOSPHATASE 84 U/L (38-126); ANION GAP 14 (5-19); ASPARTATE AMINO TRANSFERASE 33 U/L (14-36); BILIRUBIN,DIRECT 0.2 mg/dL (0.0-0.4); BILIRUBIN,TOTAL 0.2 mg/dL (0.2-1.3); BLOOD UREA NITROGEN 12 mg/dL (7-20); CALCIUM 9.7 mg/dL (8.4-10.2); CARBON DIOXIDE 20 mmol/L (22-30); CHLORIDE 108 mmol/L (98-107); CREATININE RESULT 0.72 mg/dL (0.52-1.25); GLUCOSE 147 mg/dL (75-110); POTASSIUM 4.4 mmol/L (3.6-5.0); SODIUM 141.6 mmol/L (137-145); TOTAL PROTEIN 7.3 g/dL (6.3-8.2)
--- NOTE | 2017-08-01 21:58 | EKG REPORT ---
SEVERITY:- ABNORMAL ECG - SINUS TACHYCARDIA WITH IRREGULAR RATE 83-124 PROBABLE LEFT ATRIAL ABNORMALITY BORDERLINE T ABNORMALITIES, INFERIOR LEADS : Confirmed by: Leonie Wilson 01-Aug-2017 21:57:36
[2017-08-02 00:06] VITALS: BP 116/70
== END 2017-08-02 00:01 | disposition home or self-care (01) ==
LOC: ER 18:37
DX: E86.0 Dehydration (principal); R00.0 Tachycardia, unspecified; B34.9 Viral infection, unspecified; R11.0 Nausea; R42 Dizziness and giddiness; R07.9 Chest pain, unspecified; J45.909 Unspecified asthma, uncomplicated; Z79.3 Long term (current) use of hormonal contraceptives; Z88.5 Allergy status to narcotic agent; Z91.048 Other nonmedicinal substance allergy status
CPT/HCPCS: 93005; 99285; 96360; 96361; 36415; 84443; 84703; 85025; 80053; 81001; 80307; 85379; 71020; 93010; J7030

== ENCOUNTER → 2019-06-26 | Outpatient (CLI) | payer BC ==
--- NOTE | 2019-06-26 09:04 | WOMENS IMAGING REPORT ---
EXAM DESCRIPTION: BONE DENSITY HIP/SPINE COMPLETED DATE/TIME: 06/26/2019 8:46 am REASON FOR STUDY: M81.0 AGE-RELATED OSTEOPOROSIS WITHOUT CURRENT PATHOLOGICAL FRACTURE M81.0 AGE-RE LATED OSTEOPOROSIS W/O CURRENT PATHOLOGICAL FRAC COMPARISON: None. TECHNIQUE: Dual-Energy X-ray Absorptiometry (DEXA) of the AP Spine and Hip. LIMITATIONS: None. FINDINGS: LUMBAR SPINE: The bone mineral density (BMD) measured from L1-L4 in the AP projection correlates with a T-score of 0.0, which is normal as defined by the World Health Organization. HIP: The bone mineral density (BMD) measured in the left hip correlates with a T-score of -0.7, which is n ormal as defined by the World Health Organization. IMPRESSION: 1. LUMBAR SPINE: NORMAL. 2. HIP: NORMAL. COMMENT: The World Health Organization defines low BMD as follows: T-score: Normal: Greater than -1.0 Osteopenia: Between -1.0 and -2.5 Osteoporosis: Less than -2.5 without fractures Established osteoporosis: Less than -2.5 with fractures In general, you may wish to consider: Diagnosis Treatment Follow-up DEXA Normal BMD Prevention 2-3 years Osteopenia Prevention/Therapy 1-2 years Osteoporosis Therapy Yearly TECHNICAL DOCUMENTATION: JOB ID: [id number] [employer]- All Rights Reserved Reading location - IP/workstation name: [email or web address]
== END ==
LOC: WI 08:20
PROVIDERS: ATTEND Internal Medicine Hematology & Oncology
DX: M81.0 Age-related osteoporosis without current pathological fracture (principal)
CPT/HCPCS: 77080

== ENCOUNTER 2019-12-26 05:37 | Emergency (ER) | payer BC ==
--- NOTE | 2019-12-26 06:21 | ER Document Report ---
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 last night was vomiting and having hot and cols symptoms. Patient had periodic pains of 8 out of 10 with bouts of diarrhea as well. Patient has a history of IBS and had her CBC checked. Patient upon arrival had a blood pressure 108/65 with a pulse 118 and this continued while I was doing her physical exam. Patient reports late last night she took some Voltaren but this was soon vomited. She was written this prescription several months ago because she had a question of endometriosis . The patient was not aware that this can cause stomach ulcers on unprotected stomach.. TRAVEL OUTSIDE OF THE [place] IN LAST 30 DAYS: No - HPI Onset: Yesterday Onset/Duration: Sudden, Persistent, Worse Quality of pain: Fullness Severity: Moderate Pain Level: 2 Associated symptoms: Diarrhea, Nausea, Vomiting Exacerbated by: Denies Relieved by: Denies Similar symptoms previously: No Recently seen / treated by doctor: No - Related Data Allergies/Adverse Reactions: oxycodone HCl [From Percocet] Allergy (Severe, Verified 08/01/17 18:38) severe vomiting barley Allergy (Verified 08/01/17 18:38) montelukast sodium [From Singulair] Adverse Reaction (Severe, Verified 08/01/17 18:38) severe vomiting wheat [Wheat] Adverse Reaction (Severe, Verified 08/01/17 18:38) NAUSEA,VOMITING,BLOATING,CONSTIPATION acetaminophen [From [place]] Adverse Reaction (Verified 08/01/17 18:38) Constipation hydrocodone [From [place]] Adverse Reaction (Verified 08/01/17 18:38) Constipation rye Allergy (Uncoded 08/01/17 18:38) Past Medical History - General Information source: Patient - Social History Smoking Status: Never Smoker Cigarette use (# per day): No Chew tobacco use (# tins/day): No Smoking Education Provided: No Frequency of alcohol use: None Drug Abuse: None Lives with: Family, Other - mother works for water systems Family History: Reviewed & Not Pertinent Patient has homicidal ideation: No - Past Medical History Cardiac Medical History: Denies: Hx Heart Attack, Hx Hypertension Pulmonary Medical History: Reports: Hx Asthma - ALLERGY INDUCED ASTHMA/COUGH /last used rescue inhaler in spring 2014 Neurological Medical History: Reports: Hx Migraine. Denies: Hx Cerebrovascular Accident, Hx Seizures Renal/ Medical History: Reports: Hx Ovarian Cysts. Denies: Hx Peritoneal Dialysis GI Medical History: Reports: Hx Gastroesophageal Reflux Disease, Hx Irritable Bowel. 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 Denies: Hx Hysterectomy, Hx Mastectomy, Hx Open Heart Surgery, Hx Pacemaker - Immunizations Immunizations up to date: Yes Hx Diphtheria, Pertussis, Tetanus Vaccination: Yes Review of Systems - Review of Systems Constitutional: See HPI, Chills, Fever, Malaise, Weakness, Recent illness EENT: See HPI, Throat pain - Status post vomiting sore throat Cardiovascular: No symptoms reported Respiratory: No symptoms reported Gastrointestinal: See HPI, Abdominal pain, Diarrhea, Nausea, Vomiting Genitourinary: No symptoms reported Female Genitourinary: No symptoms reported Musculoskeletal: No symptoms reported Skin: No symptoms reported Hematologic/Lymphatic: No symptoms reported Neurological/Psychological: No symptoms reported Physical Exam - Vital signs Vitals: Temp Pulse Resp BP Pulse Ox 98.7 F 118 H 16 108/65 98 12/26/19 05:42 12/26/19 05:42 12/26/19 05:42 12/26/19 05:42 12/26/19 05:42 Interpretation: Hypotensive, Tachycardic - General General appearance: Alert - HEENT Head: Normocephalic, Atraumatic Eyes: Normal Pupils: PERRL Nasal: Normal Mouth/Lips: Normal Mucous membranes: Dry Pharynx: Erythema Neck: Normal - Respiratory Respiratory status: No respiratory distress Chest status: Nontender Breath sounds: Normal Chest palpation: Normal - Cardiovascular Rhythm: Tachycardia Heart sounds: Normal auscultation Murmur: No - Abdominal Inspection: Normal Distension: No distension Bowel sounds: Hyperactive Tenderness: Tender - periumbilical - Genitourinary External exam: Other - deferred - Back Back: Normal - Extremities General upper extremity: Normal inspection General lower extremity: Normal inspection - Neurological Neuro grossly intact: Yes Cognition: Normal Orientation: AAOx4 [place] Coma Scale Eye Opening: Spontaneous [place] Coma Scale Verbal: Oriented [place] Coma Scale Motor: Obeys Commands [place] Coma Scale Total: 15 Speech: Normal Motor strength normal: LUE, RUE, LLE, RLE Sensory: Normal - Psychological Associated symptoms: Normal affect - Skin Skin Temperature: Warm Skin Moisture: Dry Course - Vital Signs Vital signs: Temp Pulse Resp BP Pulse Ox 97.9 F 91 18 96/53 L 97 12/26/19 08:55 12/26/19 08:55 12/26/19 08:55 12/26/19 08:55 12/26/19 08:55 - Laboratory Result Diagrams: 12/26/19 06:19 12/26/19 06:19 Laboratory results interpreted by me: 12/26/19 12/26/19 12/26/19 06:17 06:19 06:19 Seg Neuts % (Manual) 84 H Lymphocytes % (Manual) 4 L Abs Lymphs (Manual) 0.3 L Creatinine 0.48 L Glucose 119 H Urine Protein 30 H Urine Ketones TRACE H Urine Urobilinogen 2.0 H - Diagnostic Test Radiology reviewed: Reports reviewed - EKG Interpretation by [place] EKG shows normal: Sinus rhythm Rate: Normal Rhythm: NSR Critical Care Note - Critical Care Note Total time excluding time spent on procedures (mins): 90 Comments: I discussed this case with patient and she appeared to understand findings. Discharge - Discharge Clinical Impression: Gastroenteritis, Food poisoning, Urine ketones Condition: Good Disposition: HOME, SELF-CARE Instructions: Antinausea Medication ([facility]) Additional Instructions: Follow-up with personal doctor return to ER as needed encourage fluids like Pedialyte or diluted tea or Gatorade until tolerating brat diet that is bananas rice applesauce toast bobby walter crackers... And continue with this until able to tolerate solid diet but I would advise against milk or meat products for at least 24 hours. Prescriptions: Ondansetron HCl 4 mg PO TID PRN #15 tablet PRN Reason: nausea Forms: Return to Work Referrals: RENAE CARRION MD [Primary Care Provider] - Follow up as needed
[2019-12-26] MEDS: NORMAL SALINE 1000 ML 1,000 ML IV PRN ×2 (06:27→07:48)
[2019-12-26 06:33] LABS: HEMATOCRIT 41.6 % (36.0-47.0); HEMOGLOBIN 14.4 g/dL (12.0-15.5); MEAN CORPUSCULAR HEMOGLOBIN 31.1 pg (27.0-33.4); MEAN CORPUSCULAR HGB CONC 34.7 g/dL (32.0-36.0); MEAN CORPUSCULAR VOLUME 90 fl (80-97); PLATELET COUNT 218 10^3/uL (150-450); RED BLOOD COUNT 4.63 10^6/uL (3.72-5.28); WHITE BLOOD COUNT 7.5 10^3/uL (4.0-10.5)
[2019-12-26 06:34] LABS: APPEARANCE,URINE CLEAR; BILIRUBIN,URINE NEGATIVE (NEGATIVE); COLOR,URINE YELLOW; GLUCOSE, URINE NEGATIVE (NEGATIVE); KETONES,URINE TRACE mg/dL (NEGATIVE); LEUKOCYTE ESTERASE,URINE NEGATIVE (NEGATIVE); NITRITE,URINE NEGATIVE (NEGATIVE); PROTEIN,URINE 30 mg/dL (NEGATIVE); URINE SPECIFIC GRAVITY 1.029
[2019-12-26] MEDS ORDERED: ONDANSETRON HCL INJ/PF 4 MG/2 ML SDV IV ONE (06:42)
[2019-12-26 06:46] LABS: ALBUMIN 4.5 g/dL (3.5-5.0); ALKALINE PHOSPHATASE 95 U/L (38-126); ANION GAP 8 (5-19); ASPARTATE AMINO TRANSFERASE 24 U/L (14-36); BILIRUBIN,TOTAL 0.6 mg/dL (0.2-1.3); BLOOD UREA NITROGEN 19 mg/dL (7-20); CALCIUM 9.1 mg/dL (8.4-10.2); CARBON DIOXIDE 26 mmol/L (22-30); CHLORIDE 104 mmol/L (98-107); GLUCOSE 119 mg/dL (75-110); POTASSIUM 4.1 mmol/L (3.6-5.0); TOTAL PROTEIN 7.4 g/dL (6.3-8.2)
[2019-12-26 07:04] LABS: ABSOLUTE LYMPHOCYTES# (MANUAL) 0.3 10^3/uL (0.5-4.7); ABSOLUTE MONOCYTES # (MANUAL) 0.5 10^3/uL (0.1-1.4); BAND NEUTROPHILS % (MANUAL) 5 % (3-5); BASOPHILS % (MANUAL) 0 % (0-2); EOSINOPHILS % (MANUAL) 0 % (0-6); LYMPHOCYTES % (MANUAL) 4 % (13-45); MONOCYTES % (MANUAL) 7 % (3-13); SEGMENTED NEUTROPHILS % (MAN) 84 % (42-78); TOTAL CELLS COUNTED 100
[2019-12-26 07:05] LABS: PLATELET COMMENT ADEQUATE; RBC MORPHOLOGY COMMENT NORMO-CYTIC/CHROMIC
--- NOTE | 2019-12-26 07:58 | RADIOLOGY REPORT (SQ) ---
CT abdomen and pelvis with contrast on 12/26/2019 at 7:17 AM CLINICAL INDICATION: Generalized abdominal pain, nausea and vomiting TECHNIQUE: Multiple axial images are obtained throughout the abdomen and pelvis following the administration of IV contrast, 96 mL of Omnipaque 350contrast was administered intravenously without complication. This exam was performed according to our departmental dose-optimization program, which includes automated exposure control, adjustment of the mA and/or kV according to patient size and/or use of iterative reconstruction technique. Total DLP is 1713.98 mGy*cm. COMPARISON: 08/21/2019 FINDINGS: Abdomen: The lung bases are clear. The solid abdominal organs are unremarkable. There is no abdominal adenopathy. There is no free fluid or free air within the abdomen. The abdominal portion of the GI tract is unremarkable. Pelvis: In correlation with the patient's prior imaging the patient appears to have an arcuate or septated uterus. Pelvic organs otherwise appear unremarkable by CT. No free fluid is noted in the pelvis. There is no pelvic adenopathy. Pelvic portion of the GI tract including the appendix is unremarkable. No bony abnormality is noted. IMPRESSION: No acute abnormality.
--- NOTE | 2019-12-26 08:43 | EKG REPORT ---
SEVERITY:- BORDERLINE ECG - SINUS RHYTHM BORDERLINE T ABNORMALITIES, INFERIOR LEADS : Confirmed by: Jeremiah Fletcher MD 26-Dec-2019 08:43:16
[2019-12-26 10:38] VITALS: BP 102/68
== END 2019-12-26 10:38 | disposition home or self-care (01) ==
LOC: ER 05:37
DX: A05.9 Bacterial foodborne intoxication, unspecified (principal); K52.9 Noninfective gastroenteritis and colitis, unspecified; R82.4 Acetonuria; R10.9 Unspecified abdominal pain; R50.9 Fever, unspecified; R00.0 Tachycardia, unspecified; R10.815 Periumbilic abdominal tenderness; R53.81 Other malaise; R53.1 Weakness; R07.0 Pain in throat; Z79.899 Other long term (current) drug therapy; Z88.6 Allergy status to analgesic agent; Z88.5 Allergy status to narcotic agent; Z91.018 Allergy to other foods; J45.909 Unspecified asthma, uncomplicated
CPT/HCPCS: 93005; 99285; 96361; 96374; 36415; 87070; 87880; 83690; 85025; 81025; 80053; 81001; 74177; 93010; J2405; J7030